=== PATIENT | female | born 1945 | race Caucasian/White ===

== ENCOUNTER 2016-12-04 10:03 | Emergency (ER) | payer MEDICARE, BC ==
[2016-12-04 11:11] VITALS: BP 149/68
--- NOTE | 2016-12-04 12:21 | EDM.PDOC ---
ED HPI GENERAL MEDICAL PROBLEM - General Chief Complaint: Bite:Animal, Insect Stated Complaint: TICK BITE - R FOOT Time Seen by Provider: 12/04/16 12:05 Source of Information: Reports: Patient History Limitations: Reports: No Limitations - History of Present Illness INITIAL COMMENTS - FREE TEXT/NARRATIVE: 71 yo female present with tick bit to right ankle 2 days ago. Currently bite area is very itchy. She states that the tick was a deer tick. Denies headache , fever, or body aches. she is generally healthy - Related Data Allergies Allergy/AdvReac Type Severity Reaction Status Date / Time No Known Allergies Allergy Verified 12/04/16 11:11 Home Meds: Home Meds Ascorbic Acid [Vitamin C] 1,000 mg PO DAILY 12/08/13 [History] amLODIPine Besylate [Amlodipine Besylate] 5 mg PO DAILY 12/08/13 [History] Cholecalciferol (Vitamin D3) [Vitamin D3] 5,000 units PO DAILY 01/29/16 [History ] [place]-3/DHA/Epa/Fish Oil [[place]-3 Fish Oil Softgel] 1 tab PO DAILY 01/29/16 [ History] Docusate Sodium [Colace] 100 mg PO BID cap 02/16/16 [Rx] Metoprolol Succinate [Toprol XL] 50 mg PO DAILY tab.er 02/16/16 [Rx] Magnesium Oxide 400 mg PO DAILY #100 tablet 02/18/16 [Rx] Potassium Chloride 20 meq PO DAILY #90 tablet.er 02/18/16 [Rx] Levothyroxine 112 mcg PO ACBREAKFAST 05/24/16 [History] Calcium Carbonate [Tums] 1,000 mg PO DAILY 05/26/16 [History] Primidone [Mysoline] 50 mg PO DAILY 12/04/16 [History] Past Medical History HEENT History: Reports: Impaired Vision Cardiovascular History: Reports: Hypertension Respiratory History: Reports: Pneumonia, Recurrent 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 Neurological History: Reports: Migraines Endocrine/Metabolic History: Reports: Multinodular Thyroid Hematologic History: Reports: Anemia, Blood Transfusion(s) Oncologic (Cancer) History: Reports: Thyroid, Other (See Below) Other Oncologic History: right baptism skin Dermatologic History: Reports: Other (See Below) Other Dermatologic History: mole removal off back - Infectious Disease History Infectious Disease History: Reports: Chicken Pox, Measles, Mumps - Past Surgical History Cardiovascular Surgical History: Reports: None GI Surgical History: Reports: Appendectomy, Colonoscopy, Hernia, Abdominal Female Surgical History: Reports: Section, Tubal Ligation Endocrine Surgical History: Reports: Thyroid Biopsy, Thyroidectomy Musculoskeletal Surgical History: Reports: Ganglion Cyst, Shoulder Surgery Dermatological Surgical History: Reports: Skin Biopsy Social & Family History - Family History Family Medical History: Noncontributory - Tobacco Use Smoking Status *Q: Never Smoker Second Hand Smoke Exposure: No - Caffeine Use Caffeine Use: Reports: Coffee - Alcohol Use Days Per Week of Alcohol Use: 0 - Recreational Drug Use Recreational Drug Use: No ED ROS GENERAL - Review of Systems Review Of Systems: See Below Constitutional: Denies: Fever, Chills HEENT: Denies: Sinus Problem Respiratory: Denies: Shortness of Breath Cardiovascular: Denies: Chest Pain GI/Abdominal: Denies: Abdominal Pain ED EXAM, ANIMAL BITE - Physical Exam Exam: See Below Exam Limited By: No Limitations General Appearance: Alert, WD/WN, No Apparent Distress Respiratory/Chest: No Respiratory Distress Skin Exam: Normal Color, Warm/Dry, Other (0.5 cm mild erythema, medial right ankle) Course - Vital Signs Last Recorded V/S: Last Vital Signs Temp 36.5 C 12/04/16 11:19 Pulse 58 L 12/04/16 11:19 Resp 16 12/04/16 11:19 BP 149/68 H 12/04/16 11:19 Pulse Ox 96 12/04/16 11:19 Departure - Departure Time of Disposition: 12:18 Disposition: Home, Self-Care 01 Condition: good Clinical Impression: Tick bite of right foot Qualifiers: Encounter type: initial encounter Qualified Code(s): S90.861A - Insect bite ( nonvenomous), right foot, initial encounter - Discharge Information Instructions: Lyme Disease Referrals: Denton Gtz Sr, MD [Primary Care Provider] - Forms: ED Department Discharge Additional Instructions: wash tick bite with warm soapy water. may use over the counter anti-itch for itch relief 1 time dose of doxycycline for Lyme disease prophylaxis
== END 2016-12-04 12:29 | disposition home or self-care (01) ==
LOC: JP.ED 10:03
DX: S90.561A Insect bite (nonvenomous), right ankle, initial encounter (principal); I10 Essential (primary) hypertension; E89.0 Postprocedural hypothyroidism; Z85.850 Personal history of malignant neoplasm of thyroid; Z90.49 Acquired absence of other specified parts of digestive tract; Z98.51 Tubal ligation status; Z98.890 Other specified postprocedural states; Z79.899 Other long term (current) drug therapy
CPT/HCPCS: 99282; 99283

== ENCOUNTER 2019-04-13 17:31 | Emergency (ER) | payer MEDICARE, BC ==
--- NOTE | 2019-04-13 18:20 | EDM.PDOC ---
ED HPI GENERAL MEDICAL PROBLEM - General Chief Complaint: Cardiovascular Problem Stated Complaint: HEART RACING Time Seen by Provider: 04/13/19 18:09 Source of Information: Reports: Patient History Limitations: Reports: No Limitations - History of Present Illness INITIAL COMMENTS - FREE TEXT/NARRATIVE: pt was placed on cardura about 2 days ago for her hypertension. She has felt anxious and she has felt like her heart is racing. She has not had chest pain. She has not used cardura in the past. Onset: Other ( startd last nite. ) Duration: Hour(s): Location: Reports: Chest, Generalized Associated Symptoms: Reports: No Other Symptoms - Related Data Allergies Allergy/AdvReac Type Severity Reaction Status Date / Time No Known Allergies Allergy Verified 04/13/19 17:47 Home Meds: Home Meds Ascorbic Acid [Vitamin C] 1,000 mg PO DAILY 12/08/13 [History] amLODIPine Besylate [Amlodipine Besylate] 5 mg PO DAILY 12/08/13 [History] Cholecalciferol (Vitamin D3) [Vitamin D3] 5,000 units PO DAILY 01/29/16 [History ] [place]-3/DHA/Epa/Fish Oil [[place]-3 Fish Oil Softgel] 1 tab PO DAILY 01/29/16 [ History] Docusate Sodium [Colace] 100 mg PO BID cap 02/16/16 [Rx] Metoprolol Succinate [Toprol XL] 50 mg PO DAILY tab.er 02/16/16 [Rx] Magnesium Oxide 400 mg PO DAILY #100 tablet 02/18/16 [Rx] Potassium Chloride 20 meq PO DAILY #90 tablet.er 02/18/16 [Rx] Levothyroxine 112 mcg PO ACBREAKFAST 05/24/16 [History] Calcium Carbonate [Tums] 1,000 mg PO DAILY 05/26/16 [History] Primidone [Mysoline] 50 mg PO DAILY 12/04/16 [History] Doxazosin [Doxazosin Mesylate] 2 mg PO DAILY 04/13/19 [History] Past Medical History HEENT History: Reports: Impaired Vision Cardiovascular History: Reports: Hypertension Respiratory History: Reports: Pneumonia, Recurrent Gastrointestinal History: Reports: None Genitourinary History: Reports: None 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 Neurological History: Reports: Migraines Endocrine/Metabolic History: Reports: Multinodular Thyroid Hematologic History: Reports: Anemia, Blood Transfusion(s) Oncologic (Cancer) History: Reports: Thyroid, Other (See Below) Other Oncologic History: right pentecostal skin Dermatologic History: Reports: Other (See Below) Other Dermatologic History: mole removal off back - Infectious Disease History Infectious Disease History: Reports: Chicken Pox, Measles, Mumps - Past Surgical History Head Surgeries/Procedures: Reports: None HEENT Surgical History: Reports: None Cardiovascular Surgical History: Reports: None Respiratory Surgical History: Reports: None GI Surgical History: Reports: Appendectomy, Colonoscopy, Hernia, Abdominal Female Surgical History: Reports: Section, Tubal Ligation Endocrine Surgical History: Reports: Thyroid Biopsy, Thyroidectomy Neurological Surgical History: Reports: None Musculoskeletal Surgical History: Reports: Ganglion Cyst, Shoulder Surgery Oncologic Surgical History: Reports: None Dermatological Surgical History: Reports: Skin Biopsy Social & Family History - Family History Family Medical History: Noncontributory - Tobacco Use Smoking Status *Q: Never Smoker Second Hand Smoke Exposure: No - Caffeine Use Caffeine Use: Reports: Coffee - Recreational Drug Use Recreational Drug Use: No ED ROS GENERAL - Review of Systems Review Of Systems: See Below Constitutional: Reports: Other (pt is feeling very shaky. ) HEENT: Reports: No Symptoms Respiratory: Reports: No Symptoms Cardiovascular: Reports: Other (pt feels like her heart is racing. ) Endocrine: Reports: No Symptoms GI/Abdominal: Reports: No Symptoms : Reports: No Symptoms Musculoskeletal: Reports: No Symptoms Skin: Reports: No Symptoms ED EXAM, GENERAL - Physical Exam Exam: See Below Free Text/Narrative:: pt arrived feeling very shakey and like her heart is racing. She recently had her metoprol stopp--100mg and she was placed on cardura 2mg. She has taken 2 doses and she had not been on the metoprol for about 48 hours. Exam Limited By: No Limitations General Appearance: Alert, Anxious, Moderate Distress, Other (pt is feeling very shakey and when she went to void she did not have good control of her urine. ) Ears: Normal TMs Nose: Normal Inspection Throat/Mouth: Normal Inspection Head: Atraumatic Neck: Normal Inspection Respiratory/Chest: No Respiratory Distress Cardiovascular: Regular Rate, Rhythm, Other (rate is 70. ) GI/Abdominal: Soft, Non-Tender (Female) Exam: Deferred Rectal (Female) Exam: Deferred Back Exam: Normal Inspection Extremities: Normal Inspection Neurological: Alert, Oriented, Normal Cognition, Other (pt is very shakey. ) Psychiatric: Normal Affect Course - Vital Signs Last Recorded V/S: Last Vital Signs Temp 36.3 C 04/13/19 17:50 Pulse 83 04/13/19 18:12 Resp 16 04/13/19 18:12 BP 158/68 H 04/13/19 18:12 Pulse Ox 97 04/13/19 18:12 - Orders/Labs/Meds Orders: Active Orders 24 hr Category Date Time Status EKG Documentation Completion [RC] ASDIRECTED Care 04/13/19 17:53 Active EKG Documentation Completion [RC] ASDIRECTED Care 04/13/19 18:05 Active Orthostatic Vital Signs [RC] ASDIRECTED Care 04/13/19 18:06 Active COMPREHENSIVE METABOLIC PN,CMP [CHEM] Urgent Lab 04/13/19 18:05 Ordered TROPONIN I [CHEM] Stat Lab 04/13/19 18:08 Ordered TSH ULTRASENSITIVE [CHEM] Stat Lab 04/13/19 18:06 Ordered UA W/MICROSCOPIC [URIN] Urgent Lab 04/13/19 18:05 Ordered LORazepam [Ativan] Med 04/13/19 18:25 Once 0.5 mg PO ONETIME ONE EKG 12 Lead [EK] Routine Ther 04/13/19 18:05 Stop Req EKG 12 Lead [EK] Urgent Ther 04/13/19 17:52 Ordered Medication Orders Lorazepam (Ativan) 0.5 mg PO ONETIME ONE Stop: 04/13/19 18:26 Labs: Laboratory Tests 04/13/19 Range/Units 18:05 WBC 5.8 (4.5-11.0) K/uL RBC 3.90 (3.30-5.50) M/uL Hgb 12.6 (12.0-15.0) g/dL Hct 37.9 (36.0-48.0) % MCV 97 (80-98) fL MCH 32 H (27-31) pg MCHC 33 (32-36) % Plt Count 238 (150-400) K/uL Neut % (Auto) 52 (36-66) % Lymph % (Auto) 35 (24-44) % Scurry % (Auto) 10 H (2-6) % Eos % (Auto) 2 (2-4) % Baso % (Auto) 1 (0-1) % Meds: Medications Generic Name Dose Route Start Last Admin Trade Name Suze PRN Reason Stop Dose Admin Lorazepam 0.5 mg 04/13/19 18:25 Ativan PO 04/13/19 18:26 ONETIME ONE - Re-Assessments/Exams Free Text/Narrative Re-Assessment/Exam: 04/13/19 19:06 pt had taken her metoprol 100mg just prior to coming. She did not take the cardura today. She has normal lab work. She has a normal trop. Her ekg looks norrmal and she is not tachy. Departure - Departure Time of Disposition: 19:07 Disposition: Home, Self-Care 01 Condition: Fair Clinical Impression: Reaction, drug, adverse, Withdrawal complaint Referrals: Denton Gtz Sr, MD [Primary Care Provider] - Forms: ED Department Discharge Care Plan Goals: resume metoprol 100mg, hold cardura, appt with Dr Gtz and discuss the cardura, bp can be rechecked at that time. rtc if further problems. - My Orders Last 24 Hours: My Active Orders 04/13/19 18:05 EKG Documentation Completion [RC] ASDIRECTED COMPREHENSIVE METABOLIC PN,CMP [CHEM] Urgent UA W/MICROSCOPIC [URIN] Urgent EKG 12 Lead [EK] Routine 04/13/19 18:06 Orthostatic Vital Signs [RC] ASDIRECTED TSH ULTRASENSITIVE [CHEM] Stat 04/13/19 18:08 TROPONIN I [CHEM] Stat 04/13/19 18:25 LORazepam [Ativan] 0.5 mg PO ONETIME ONE - Assessment/Plan Last 24 Hours: My Active Orders 04/13/19 18:05 EKG Documentation Completion [RC] ASDIRECTED COMPREHENSIVE METABOLIC PN,CMP [CHEM] Urgent UA W/MICROSCOPIC [URIN] Urgent EKG 12 Lead [EK] Routine 04/13/19 18:06 Orthostatic Vital Signs [RC] ASDIRECTED TSH ULTRASENSITIVE [CHEM] Stat 04/13/19 18:08 TROPONIN I [CHEM] Stat 04/13/19 18:25 LORazepam [Ativan] 0.5 mg PO ONETIME ONE
[2019-04-13] MEDS ORDERED: LORazepam 0.5 MG Tab PO ONE (18:25)
[2019-04-13 18:49] VITALS: BP 150/66; PULSE 68
== END 2019-04-13 19:42 | disposition home or self-care (01) ==
LOC: JP.ED 17:31
DX: R09.89 Other specified symptoms and signs involving the circulatory and respiratory systems (principal); T44.6X5A Adverse effect of alpha-adrenoreceptor antagonists, initial encounter; F19.930 Other psychoactive substance use, unspecified with withdrawal, uncomplicated; I10 Essential (primary) hypertension; Z79.899 Other long term (current) drug therapy
CPT/HCPCS: 36415; 80053; 81001; 84443; 84484; 85025; 93005; 99284; 99285-25; A9270-GY

== ENCOUNTER 2025-03-29 00:08 | Emergency (ER) | payer MEDICARE ==
[2025-03-29 01:50] VITALS: BP 164/59; PULSE 51
== END 2025-03-29 02:02 | disposition home or self-care (01) ==
LOC: JP.ED 00:08
DX: I10 Essential (primary) hypertension (principal); Z79.890 Hormone replacement therapy; Z79.899 Other long term (current) drug therapy
CPT/HCPCS: 99283; A9270